=== PATIENT | male | born 1950 | race Caucasian/White ===

== ENCOUNTER 2023-09-21 11:09 | Day surgery (SDC) | payer MEDICARE, BC ==
[~2023-09-21] VITALS: Ht 182.9 cm; Wt 81.0 kg
[2023-09-21] VITALS (7 sets, daily range): BP systolic 128–184; BP diastolic 63–87; PULSE 60–67; RESP 15–16; TEMP 97.4; O2SAT 94–98
[2023-09-21] MEDS ORDERED: ASPI81TA52 PO (11:51)
[2023-09-21 12:08] LABS: EOSINOPHILS # (AUTO) 0.1 X10'3 (0-0.9); EOSINOPHILS % (AUTO) 1.8 % (0-6); LYMPHOCYTES # (AUTO) 2.7 X10'3 (1.1-4.8); MONOCYTES # (AUTO) 0.6 X10'3 (0-0.9); MONOCYTES % (AUTO) 13.7 % (2-12); NEUTROPHILS # (AUTO) 0.8 X10'3 (1.8-7.7)
[2023-09-21 12:10] LABS: BASOPHILS % (AUTO) 0.9 % (0-1); HEMATOCRIT 42.8 % (42.0-52.0); HEMOGLOBIN 14.8 g/dl (14.0-17.9); LYMPHOCYTES % (AUTO) 65.4 % (21-51); MEAN CORPUSCULAR HGB CONC 34.6 g/dL (33.0-36.5); MEAN CORPUSCULAR VOLUME 92.7 FL (78-98); MEAN PLATELET VOLUME 8.2 FL (7.4-10.4); NEUTROPHILS % (AUTO) 18.2 % (42-75); PLATELET COUNT 106 X10'3 (140-440); RED BLOOD COUNT 4.62 X10'6 (4.70-6.10); RED CELL DISTRIBUTION WIDTH 16.2 % (11.5-14.5); WHITE BLOOD COUNT 4.1 X10'3 (4.5-11.0)
[2023-09-21] MEDS: diphenhydrAMINE 25mg capsule PO PRN (12:12)
[2023-09-21] MEDS: LORazepam 0.5 MG tablet PO PRN (12:12)
[2023-09-21] MEDS: normal saline 1,000 ML IV SCH (12:14)
[2023-09-21 12:57] LABS: ANISOCYTOSIS 1+; PLATELET ESTIMATE DECREASED; TOTAL CELLS COUNTED 100
[2023-09-21 12:58] LABS: POIKILOCYTOSIS FEW; TARGET CELLS FEW
[2023-09-21 13:04] LABS: ALBUMIN 3.2 G/DL (3.4-5.0); ANION GAP 9 (8-16); BLOOD UREA NITROGEN 12 MG/DL (7-18); BUN/CREATININE RATIO 14.1 (10.0-20.0); CALCIUM 9.2 MG/DL (8.5-10.1); CHLORIDE 105 MMOL/L (99-107); CREATININE 0.85 MG/DL (0.60-1.10); GLUCOSE 128 MG/DL (70-104); POTASSIUM 3.8 MMOL/L (3.5-5.1); SODIUM 140 MMOL/L (135-145); TOTAL CARBON DIOXIDE 26.2 MMOL/L (24-32); eCRCL 86 ML/MIN; eGFR 89 ML/MIN
[2023-09-21 13:07] LABS: APTT 29 SECONDS (22-32)
[2023-09-21 13:10] LABS: CHOL/HDL RATIO 2.6 (0.00-4.99); CHOLESTEROL 182 MG/DL (0-200); HDL CHOLESTEROL 71 MG/DL (35-60); LDL CHOLESTEROL 92 MG/DL (50-100); TRIGLYCERIDES 58 MG/DL (20-135)
[2023-09-21] MEDS ORDERED: verapamil 2.5 mg/ml inj IV ONE (14:01)
[2023-09-21] MEDS ORDERED: LIDOcaine 1% (10mg/ml) 2ml vial ONE (14:01)
[2023-09-21] MEDS ORDERED: heparin 1,000unit/ml 10ml vial 10 ML ONE (14:02)
[2023-09-21] MEDS ORDERED: iohexol 350MG/ML 100ml bottle IV ONE ×2 (14:02→14:36)
[2023-09-21] MEDS ORDERED: fentaNYL/PF 50MCG/1 ML 2ML syringe ONE (14:02)
[2023-09-21] MEDS ORDERED: midazolam 1 mg/ML 2ml injection ONE (14:02)
[2023-09-21] MEDS ORDERED: nitroGLYCERIN 500mcg/5mL D5W 5 ML IV ONE (14:02)
[2023-09-21] MEDS ORDERED: HYDROcodone/acetaminophen 5mg/325mg tablet PO PRN (15:25)
[2023-09-21] MEDS ORDERED: HYDROcodone/acetaminophen 10/325mg tab PO PRN (15:25)
[2023-09-24] MEDS ORDERED: ATOR40TA PO (13:33)
[2023-09-27] MEDS ORDERED: NITR0.4T48 (15:02)
== END 2023-09-21 17:15 | disposition home or self-care (01) ==
LOC: SSTAY O 11:09
PROVIDERS: ATTEND Student in an Organized Health Care Education/Training Program
DX: R94.39 Abnormal result of other cardiovascular function study (principal); I25.119 Atherosclerotic heart disease of native coronary artery with unspecified angina pectoris; I25.2 Old myocardial infarction; I49.1 Atrial premature depolarization; E78.00 Pure hypercholesterolemia, unspecified; Z85.6 Personal history of leukemia; Z79.82 Long term (current) use of aspirin; Z79.899 Other long term (current) drug therapy
CPT/HCPCS: 36415; 80048; 80061; 85025; 85610; 85730; 93005; 93458; 99152; A6258; J1644; J2250; J3010; J3490; J7030; Q0163; Q9967; 96360; A6402; C1894